=== PATIENT | female | born 2005 | race Two or more races ===

== ENCOUNTER 2024-08-25 09:24 | Emergency (ER) | payer OTHER ==
[~2024-08-25] VITALS: Ht 160 cm; Wt 72.7 kg
[2024-08-25 09:53] LABS: APPEARANCE,URINE CLEAR (CLEAR); BILIRUBIN,URINE NEGATIVE (NEGATIVE); COLOR,URINE COLORLESS (YELLOW); GLUCOSE, URINE (UA) NEGATIVE (NEGATIVE); KETONES,URINE NEGATIVE (NEGATIVE); LEUKOCYTE ESTERASE ,URINE NEGATIVE (NEGATIVE); NITRATE,URINE NEGATIVE (NEGATIVE); OCCULT BLOOD,URINE NEGATIVE (NEGATIVE); PROTEIN,URINE NEGATIVE (NEGATIVE); SPECIFIC GRAVITIY, URINE 1.006 (1.003-1.030); UROBILINOGEN,URINE <=1.0 mg/dL (<=1.0)
[2024-08-25 09:54] LABS: BASOPHILS % (AUTO) 0.5 % (0.0-2.0); EOSINOPHILS % (AUTO) 1.1 % (1.0-6.0); HEMATOCRIT 40.2 % (36-46); HEMOGLOBIN 13.2 g/dL (12.0-16.0); LYMPHOCYTES # (AUTO) 2.9 K/uL (1.0-4.8); LYMPHOCYTES % (AUTO) 23.8 % (22.0-44.0); MEAN CORPUSCULAR HEMOGLOBIN 30.4 pg (26.0-34.0); MEAN CORPUSCULAR HGB CONC 32.9 G/dL (31.0-37.0); MEAN CORPUSCULAR VOLUME 93 fL (80-100); MONOCYTES # (AUTO) 0.8 K/uL (0.1-1.0); MONOCYTES % (AUTO) 6.4 % (2.0-9.0); NEUTROPHILS # (AUTO) 8.4 K/uL (1.8-7.7); NEUTROPHILS % (AUTO) 68.2 % (40.0-70.0); PLATELET COUNT (AUTO) 251 K/uL (150-450); RED BLOOD CELL COUNT(AUTO) 4.34 MIL/uL (4.00-5.20); RED CELL DISTRIBUTION WIDTH 13.5 % (11.5-14.5); WHITE BLOOD COUNT (AUTO) 12.4 K/uL (4.5-11.0)
[2024-08-25 10:02] LABS: ANION GAP 9 mmol/L (8-16); CALCIUM, TOTAL 8.7 mg/dL (8.8-10.5); CARBON DIOXIDE 28 mmol/L (22-29); CHLORIDE 104 mmol/L (98-107); CREATININE 0.73 mg/dL (0.60-1.30); GLOMERULAR FILTR. RATE CALC > 60 mL/min (>60); GLUCOSE,RANDOM 91 mg/dL (70-110); POTASSIUM 3.9 mmol/L (3.5-5.1); SODIUM SERUM 140 mmol/L (136-145); UREA NITROGEN, BLOOD 10 mg/dL (7-18)
[2024-08-25] MEDS: SODIUM CHLORIDE 0.9% 1,000 ML IV ONE (10:19)
[2024-08-25] MEDS: KETOROLAC TROMETHAMINE 30 MG/ML VIAL IVP ONE (10:19)
[2024-08-25 10:20] LABS: TROPONIN I-HIGH SENSITIVITY 4 ng/L (<51)
[2024-08-25 10:40] LABS: COVID AG,FIA SOURCE NASAL SWAB
[2024-08-25 11:04] VITALS: TEMP 98.4
[2024-08-25 11:16] LABS: INFLUENZA TYPE A NEGATIVE FOR TYPE A (NEGATIVE); INFLUENZA TYPE B NEGATIVE FOR TYPE B (NEGATIVE); SARS-COV2 (COVID) ANTIGEN,FIA Negative (Negative)
[2024-08-25 11:30] LABS: HCG,QUAL URINE NEGATIVE (NEGATIVE)
[2024-08-25] MEDS: AZITHROMYCIN 500 MG TABLET PO ONE (11:34)
[2024-08-25] MEDS ORDERED: ACET-3385 PO (11:35)
[2024-08-25] MEDS ORDERED: AZIT-164 PO (11:35)
[2024-08-25] MEDS ORDERED: IBUP-1492 PO (11:35)
[2024-08-25 11:42] VITALS: BP 119/57; PULSE 75; RESP 18; O2SAT 99
== END 2024-08-25 11:51 | disposition home or self-care (01) ==
LOC: EMS 09:28
DX: J18.9 Pneumonia, unspecified organism (principal); Z88.0 Allergy status to penicillin; Z90.49 Acquired absence of other specified parts of digestive tract; Z20.822 Contact with and (suspected) exposure to COVID-19
CPT/HCPCS: 99285; 96374; 71045; 96361; 87426; 80048; 81003; 84484; 85025; 85379; 87804; 36415; 93005; 84703; J0456; J1885; J7030

== ENCOUNTER 2025-04-29 19:24 | Emergency (ER) | payer OTHER ==
[~2025-04-29] VITALS: Ht 160 cm; Wt 72.7 kg
[~2025-04-29 19:24] MED LIST: ACET-3385 PO; AZIT-164 PO; IBUP-1492 PO
[2025-04-29] MEDS: BENZONATATE 100 MG CAPSULE PO ONE (20:24)
[2025-04-29] MEDS: IBUPROFEN 400 MG TABLET PO ONE (20:31)
[2025-04-29 20:33] LABS: PLATELET COUNT (AUTO) 299 K/uL (150-450); RED BLOOD CELL COUNT(AUTO) 4.31 MIL/uL (4.00-5.20); RED CELL DISTRIBUTION WIDTH 14.0 % (11.5-14.5); WHITE BLOOD COUNT (AUTO) 11.1 K/uL (4.5-11.0)
[2025-04-29 20:35] LABS: CALCIUM, TOTAL 8.5 mg/dL (8.8-10.5); CREATININE 0.76 mg/dL (0.60-1.30); GLOMERULAR FILTR. RATE CALC > 60 mL/min (>60); GLUCOSE,RANDOM 104 mg/dL (70-110); SODIUM SERUM 140 mmol/L (136-145); UREA NITROGEN, BLOOD 8 mg/dL (7-18)
[2025-04-29] MEDS ORDERED: BENZ-227 PO (21:28)
[2025-04-29 21:37] VITALS: BP 131/74; PULSE 81; RESP 16; TEMP 97.3; O2SAT 98
== END 2025-04-29 21:44 | disposition home or self-care (01) ==
LOC: EMS 19:26
DX: R05.9 Cough, unspecified (principal); R06.02 Shortness of breath; Z90.49 Acquired absence of other specified parts of digestive tract; Z88.0 Allergy status to penicillin; Z79.899 Other long term (current) drug therapy
CPT/HCPCS: 71045; 80048; 84703; 85025; 85379; 93005; 99285; 36415-L1; 36415-TC